=== PATIENT | female | born 1960 | race Caucasian/White ===

== ENCOUNTER 2021-08-19 20:16 | Emergency (ER) | payer BC ==
[~2021-08-19] VITALS: Ht 170.2 cm; Wt 63.5 kg
--- NOTE | 2021-08-19 20:56 | NUR ---
Dr. Lopez at bedside for MSE.
[2021-08-19] MEDS ORDERED: predniSONE 20 MG TABLET PO ONE (21:30)
[2021-08-19] MEDS ORDERED: predniSONE 20 MG TABLET ONE (21:30)
[2021-08-19] MEDS ORDERED: PRED20TA PO (21:39)
--- NOTE | 2021-08-19 21:42 | NUR ---
Patient discharged to home in stable condition. Written and verbal after care instructions given. Patient verbalizes understanding of instructions. Stressed follow up or return to ER for worsening s/s. Patient out of ER with steady gait, no acute signs of distress, VSS, all belongings taken.
[2021-08-19 21:43] VITALS: BP 140/83
[2021-08-19] MEDS ORDERED: diphenhydrAMINE 25 MG CAP PO ONE (21:45)
== END 2021-08-19 21:44 | disposition home or self-care (01) ==
LOC: ER 20:22
DX: T78.40XA Allergy, unspecified, initial encounter (principal); X58.XXXA Exposure to other specified factors, initial encounter
CPT/HCPCS: 99283; J7512; A4663